=== PATIENT | male | born 1990 | race Caucasian/White ===

== ENCOUNTER 2016-08-10 16:16 | Emergency (ER) | payer OTHER | END 2016-08-10 17:58 | disposition home or self-care (01) | LOC: ER1 16:16 | DX: S60.511A Abrasion of right hand, initial encounter (principal); Z88.0 Allergy status to penicillin; Z88.6 Allergy status to analgesic agent; F17.210 Nicotine dependence, cigarettes, uncomplicated; V19.9XXA Pedal cyclist (driver) (passenger) injured in unspecified traffic accident, initial encounter; Y93.55 Activity, bike riding; Y99.8 Other external cause status | CPT/HCPCS: 99283 ==

== ENCOUNTER 2020-06-12 16:37 | Emergency (ER) | payer OTHER ==
[~2020-06-12 16:37] MED LIST: ERYTHROMYCIN O3.5 GM OU; NORFLEX 100 MG100 MG PO; PREDNISONE 50 M50 MG PO
== END 2020-06-12 17:50 | disposition home or self-care (01) ==
LOC: ER1 16:37
DX: R51.9 Headache, unspecified (principal); F17.290 Nicotine dependence, other tobacco product, uncomplicated; Z90.49 Acquired absence of other specified parts of digestive tract; Z79.01 Long term (current) use of anticoagulants; Z79.899 Other long term (current) drug therapy; Z88.0 Allergy status to penicillin
CPT/HCPCS: 99283

== ENCOUNTER 2020-06-24 10:18 | Emergency (ER) | payer OTHER ==
[2020-06-24] MEDS ORDERED: NAPROSYN500 MG PO (11:42)
[2020-06-24] MEDS ORDERED: CYCLOBENZAPRINE10 MG PO (11:42)
== END 2020-06-24 11:47 | disposition home or self-care (01) ==
LOC: ER1 10:18
DX: S39.012A Strain of muscle, fascia and tendon of lower back, initial encounter (principal); F17.220 Nicotine dependence, chewing tobacco, uncomplicated; Z90.49 Acquired absence of other specified parts of digestive tract; Z88.6 Allergy status to analgesic agent; X50.0XXA Overexertion from strenuous movement or load, initial encounter; Y92.009 Unspecified place in unspecified non-institutional (private) residence as the place of occurrence of the external cause
CPT/HCPCS: 96372; 99283; J1100; J1885